=== PATIENT | female | born 1975 | race Caucasian/White ===

== ENCOUNTER 2024-01-09 14:03 | Observation (INO) | payer BC ==
[2024-01-09 14:34] LABS: Absolute Neutrophil Ct (ANC) 4.41 x10^3/uL (1.56-6.13); BASOPHIL % 0.6 % (0.1-1.2); Basophil (Absolute #) 0.04 x10^3/uL (0.01-0.08); Eosinophil % 0.9 % (0.7-5.8); Eosinophil (Absolute #) 0.06 x10^3/uL (0.04-0.36); Hematocrit 40.1 % (34.1-44.9); Hemoglobin 13.3 g/dL (11.2-15.7); IMMATURE GRAN # 0.01 x10^3u/L (0.001-0.031); IMMATURE GRAN % 0.2 % (0.001-0.429); Lymphocyte (Absolute #) 1.43 x10^3/uL (1.18-3.74); Lymphocytes % 21.9 % (19.3-51.7); Mean Cell Volume 84.4 fL (79.4-94.8); Mean Corpuscular Hgb Concent. 33.2 g/dL (32.2-35.5); Mean Platelet Volume 9.3 fL (9.4-12.3); Monocyte (Absolute #) 0.57 x10^3/uL (0.24-0.86); Monocytes % 8.7 % (4.7-12.5); Neutrophil % 67.7 % (34.0-71.1); Platelet Count 327 x10^3/uL (182-369); Red Blood Count 4.75 x10^6/uL (3.93-5.22); Red Cell Distribution Width 12.5 % (11.7-14.4); White Blood Count 6.5 x10^3/uL (3.98-10.04)
[2024-01-09] MEDS ORDERED: Sodium Chloride 0.9% 1000 ML 1,000 ML ONE ×2 (14:34→20:22)
[2024-01-09] MEDS ORDERED: Zofran 4 MG/2 ML VIAL ONE ×2 (14:34→17:32)
[2024-01-09] MEDS ORDERED: PROTONIX 40 MG IV IV ONE (14:34)
[2024-01-09] MEDS: Zofran 4 MG/2 ML VIAL IV ONE (14:38)
[2024-01-09] MEDS: Sodium Chloride 0.9% 1000 ML 1,000 ML IV STA (14:38)
[2024-01-09 14:39] LABS: HCG URINE TEST NEGATIVE (NEGATIVE)
[2024-01-09] MEDS: PROTONIX 40 MG IV IV ONE (14:39)
--- NOTE | 2024-01-09 14:41 | ERPHSYRPT ---
- History of Present Illness Time Seen by Provider: 01/09/24 14:39 Historian: patient Exam Limitations: no limitations Patient Subjective Stated Complaint: Lower right sided abdominal pain Triage Nursing Assessment: Patient ambulated back to ED and transferred self to bed. Patient A+O X3. Patient's skin pink, warm and dry. Patient complains of ri ght lower abdominal pain 2/10 that started last night. Patient states the pain is worse at times when she walks or coughs. Patient complains of nausea, but denies vomiting. Physician History: Lower right sided abdominal pain since last night. Got worst in AM today. Patient complains of right lower abdominal pain 2/10 that started last night. Patient states the pain is worse at times when she walks or coughs. Patient complains of nausea, but denies vomiting. Timing/Duration: yesterday Quality: aching, stabbing Abdominal Pain Onset Location: RLQ, LLQ, periumbilical Pain Radiation: no radiation Severity of Pain-Max: moderate Severity of Pain-Current: moderate Modifying Factors: Improves With: nothing Associated Symptoms: loss of appetite, nausea, No diarrhea, No fever/chills, No vomiting Previous symptoms: no prior history Allergies/Adverse Reactions: No Known Drug Allergies Allergy (Verified 01/09/24 14:08) Home Medications: Semaglutide [Wegovy] 0.5 mg SQ WEEKLY 01/09/24 [History] Hx Influenza Vaccination/Date Given: No Hx Pneumococcal Vaccination/Date Given: No Immunizations Up to Date: Yes Travel Risk - International Travel Have you traveled outside of the country in past 3 weeks: No - Emerging Infectious Disease Are you exhibiting symptoms associated with any current EIDs: No - Review of Systems Constitutional: No Fever, No Chills Eyes: No Symptoms Ears, Nose, & Throat: No Symptoms Respiratory: No Cough, No Dyspnea Cardiac: No Chest Pain, No Edema, No Syncope Abdominal/Gastrointestinal: Abdominal Pain, Nausea, No Vomiting, No Diarrhea Genitourinary Symptoms: No Dysuria Musculoskeletal: No Back Pain, No Neck Pain Skin: No Rash Neurological: No Dizziness, No Focal Weakness, No Sensory Changes Psychological: No Symptoms Endocrine: No Symptoms All Other Systems: Reviewed and Negative - Past Medical History Pertinent Past Medical History: Yes Neurological History: No Pertinent History ENT History: No Pertinent History Cardiac History: Hypertension Respiratory History: No Pertinent History Endocrine Medical History: No Pertinent History Musculoskeletal History: No Pertinent History GI Medical History: No Pertinent History History: No Pertinent History Psycho-Social History: No Pertinent History Female Reproductive Disorders: No Pertinent History - Past Surgical History Past Surgical History: Yes Neuro Surgical History: No Pertinent History Cardiac: No Pertinent History Respiratory: No Pertinent History Gastrointestinal: No Pertinent History Musculoskeletal: Other Female Surgical History: Section Other Surgical History: ABLATION LEFT LEG,UTERINE POLYPECTOMY - Female History Hx Last Menstrual Period: 3 weeks ago Hx Now: No - Social History Smoking Status: Never smoker Exposure to second hand smoke: No Drug Use: none - Social Determinants of Health Will the patient participate in the screening: Yes Do you worry about a steady place to live?: No Do you have any problems with any of the following?: No known problems In the past 12 months,have you had to go without utilities?: No Transportation Issues: No Has anyone in your support network made you feel unsafe?: No Have you or anyone in your house had to go without enough: No - Nursing Vital Signs Nursing Vital Signs: Initial Vital Signs Temperature 98.3 F 01/09/24 14:11 Pulse Rate 118 H 01/09/24 14:11 Respiratory Rate 20 01/09/24 14:11 Blood Pressure 158/102 01/09/24 14:11 O2 Sat by Pulse Oximetry 100 01/09/24 14:11 Pain Scale Pain Intensity 2 - Physical Exam General Appearance: no apparent distress, alert Eye Exam: PERRL/EOMI, eyes nml inspection Ears, Nose, Throat Exam: normal ENT inspection, pharynx normal, moist mucous membranes Neck Exam: normal inspection, non-tender, supple, full range of motion Respiratory Exam: normal breath sounds, lungs clear, No respiratory distress Cardiovascular Exam: regular rate/rhythm, normal heart sounds Gastrointestinal/Abdomen Exam: soft, tenderness (right lower quadrant), No mass Pelvic Exam: not done Rectal Exam: deferred Back Exam: normal inspection, normal range of motion, No CVA tenderness, No vertebral tenderness Extremity Exam: normal inspection, normal range of motion, pelvis stable Neurologic Exam: alert, oriented x 3, cooperative, normal mood/affect, nml cerebellar function, sensation nml, No motor deficits Skin Exam: normal color, warm, dry SpO2 Interpretation: normal SpO2: 100 O2 Delivery: Room Air - Course Nursing assessment & vital signs reviewed: Yes - CT Exams Abdomen/Pelvis CT Interpretation: Tele-radiologist Report (Acute Appendicitis) Ordered Tests: Active Orders 24 hr Category Date Time Status IV Insertion STAT Care 01/09/24 14:19 Active ABDOMEN AND PELVIS W CONTRAST [CT] Stat Exams 01/09/24 14:27 Completed AMYLASE Stat Lab 01/09/24 14:30 Completed CBC W DIFF Stat Lab 01/09/24 14:30 Completed CMP Stat Lab 01/09/24 14:30 Completed HCG QUALITATIVE, URINE Stat Lab 01/09/24 14:30 Completed LIPASE Stat Lab 01/09/24 14:30 Completed UA W/RFX UR CULTURE Stat Lab 01/09/24 14:30 Completed Medication Summary Discontinued Medications Generic Name Dose Route Start Last Admin Trade Name Freq PRN Reason Stop Dose Admin Sodium Chloride 1,000 mls @ 999 mls/hr 01/09/24 14:27 01/09/24 16:12 Sodium Chloride 0.9% 1000 Ml IV 01/09/24 15:27 Infused .Q1H1M STA Infusion Sodium Chloride Confirm 01/09/24 14:34 Sodium Chloride 0.9% 1000 Ml Administered 01/09/24 14:35 Dose 1,000 mls @ ud .ROUTE .STK-MED ONE Morphine Sulfate 4 mg 01/09/24 14:27 Morphine Sulfate 4 Mg/Ml Injection IV 01/09/24 14:28 STAT ONE Ondansetron HCl 4 mg 01/09/24 14:27 01/09/24 14:38 Ondansetron Hcl 4 Mg/2 Ml Vial IV 01/09/24 14:28 4 mg STAT ONE Administration Ondansetron HCl Confirm 01/09/24 14:34 Ondansetron Hcl 4 Mg/2 Ml Vial Administered 01/09/24 14:35 Dose 4 mg .ROUTE .STK-MED ONE Pantoprazole Sodium 40 mg 01/09/24 14:27 01/09/24 14:39 Pantoprazole 40 Mg Vial IV 01/09/24 14:28 40 mg STAT ONE Administration Pantoprazole Sodium Confirm 01/09/24 14:34 Pantoprazole 40 Mg Vial Administered 01/09/24 14:35 Dose 40 mg IV .STK-MED ONE Lab/Rad Data: Laboratory Result Diagrams 01/09/24 14:30 01/09/24 14:30 Laboratory Results 09/01/09/24 01/09/24 Range/Units 14:30 14:30 14:30 WBC 6.5 (3.98-10.04) x10^3/uL RBC 4.75 (3.93-5.22) x10^6/uL Hgb 13.3 (11.2-15.7) g/dL Hct 40.1 (34.1-44.9) % MCV 84.4 (79.4-94.8) fL MCH 28.0 (25.6-32.2) pg MCHC 33.2 (32.2-35.5) g/dL RDW 12.5 (11.7-14.4) % Plt Count 327 (182-369) x10^3/uL MPV 9.3 L (9.4-12.3) fL Gran % 67.7 (34.0-71.1) % Immature Gran % (Auto) 0.2 (0.001-0.429) % Nucleat RBC Rel Count 0.0 (0.00-0.2) % Eos # (Auto) 0.06 (0.04-0.36) x10^3/uL Immature Gran # (Auto) 0.01 (0.001-0.031) x10^3u/L Absolute Lymphs (auto) 1.43 (1.18-3.74) x10^3/uL Absolute Monos (auto) 0.57 (0.24-0.86) x10^3/uL Absolute Nucleated RBC 0.00 (0.00-0.012) x10^3u/L Lymphocytes % 21.9 (19.3-51.7) % Monocytes % 8.7 (4.7-12.5) % Eosinophils % 0.9 (0.7-5.8) % Basophils % 0.6 (0.1-1.2) % Absolute Granulocytes 4.41 (1.56-6.13) x10^3/uL Basophils # 0.04 (0.01-0.08) x10^3/uL Sodium 139 (135-145) mmol/L Potassium 3.7 (3.5-5.1) mmol/L Chloride 107 (98-107) mmol/L Carbon Dioxide 23 (22-30) mmol/L Anion Gap 12.5 (5-15) MEQ/L BUN 10 (7-17) mg/dL Creatinine 0.79 (0.52-1.04) mg/dL Estimated GFR 92.2 ML/MIN Glucose 97 (74-106) mg/dL Calcium 9.2 (8.4-10.2) mg/dL Total Bilirubin 0.80 (0.2-1.3) mg/dL AST 24 (14-36) U/L ALT 19 (0-35) U/L Alkaline Phosphatase 58 (38-126) U/L Serum Total Protein 7.9 (6.3-8.2) g/dL Albumin 4.6 (3.5-5.0) g/dL Amylase 81 (30-110) U/L Lipase 132 (23-300) U/L Urine Color (Yellow) Urine Appearance (Clear) Urine pH (4.6-8.0) Ur Specific Pierce (1.005-1.030) Urine Protein (Negative) Urine Glucose (UA) (Negative) mg/dL Urine Ketones (Negative) Urine Blood (Negative) Urine Nitrite (Negative) Urine Bilirubin (Negative) Urine Urobilinogen (0.2) mg/dL Ur Leukocyte Esterase (Negative) U Hyaline Cast (Auto) (0-2) /LPF Urine Microscopic RBC (0-5) /HPF Urine Microscopic WBC (0-5) /HPF Ur Epithelial Cells (None Seen) /HPF Urine Bacteria (None Seen) /HPF Urine Culture Reflexed (NO) Urine HCG, Qual NEGATIVE (NEGATIVE) 01/09/24 Range/Units 14:30 WBC (3.98-10.04) x10^3/uL RBC (3.93-5.22) x10^6/uL Hgb (11.2-15.7) g/dL Hct (34.1-44.9) % MCV (79.4-94.8) fL MCH (25.6-32.2) pg MCHC (32.2-35.5) g/dL RDW (11.7-14.4) % Plt Count (182-369) x10^3/uL MPV (9.4-12.3) fL Gran % (34.0-71.1) % Immature Gran % (Auto) (0.001-0.429) % Nucleat RBC Rel Count (0.00-0.2) % Eos # (Auto) (0.04-0.36) x10^3/uL Immature Gran # (Auto) (0.001-0.031) x10^3u/L Absolute Lymphs (auto) (1.18-3.74) x10^3/uL Absolute Monos (auto) (0.24-0.86) x10^3/uL Absolute Nucleated RBC (0.00-0.012) x10^3u/L Lymphocytes % (19.3-51.7) % Monocytes % (4.7-12.5) % Eosinophils % (0.7-5.8) % Basophils % (0.1-1.2) % Absolute Granulocytes (1.56-6.13) x10^3/uL Basophils # (0.01-0.08) x10^3/uL Sodium (135-145) mmol/L Potassium (3.5-5.1) mmol/L Chloride (98-107) mmol/L Carbon Dioxide (22-30) mmol/L Anion Gap (5-15) MEQ/L BUN (7-17) mg/dL Creatinine (0.52-1.04) mg/dL Estimated GFR ML/MIN Glucose (74-106) mg/dL Calcium (8.4-10.2) mg/dL Total Bilirubin (0.2-1.3) mg/dL AST (14-36) U/L ALT (0-35) U/L Alkaline Phosphatase (38-126) U/L Serum Total Protein (6.3-8.2) g/dL Albumin (3.5-5.0) g/dL Amylase (30-110) U/L Lipase (23-300) U/L Urine Color Yellow (Yellow) Urine Appearance Clear (Clear) Urine pH 6.0 (4.6-8.0) Ur Specific Pierce 1.020 (1.005-1.030) Urine Protein Trace A (Negative) Urine Glucose (UA) Negative (Negative) mg/dL Urine Ketones Trace A (Negative) Urine Blood Negative (Negative) Urine Nitrite Negative (Negative) Urine Bilirubin Negative (Negative) Urine Urobilinogen 0.2 (0.2) mg/dL Ur Leukocyte Esterase Negative (Negative) U Hyaline Cast (Auto) NONE SEEN (0-2) /LPF Urine Microscopic RBC 3-5 (0-5) /HPF Urine Microscopic WBC 0-2 (0-5) /HPF Ur Epithelial Cells Moderate A (None Seen) /HPF Urine Bacteria Few A (None Seen) /HPF Urine Culture Reflexed NO (NO) Urine HCG, Qual (NEGATIVE) - Progress Progress: unchanged, pain not gone completely Discussed with : Estuardo Counseled pt/family regarding: lab results, diagnosis, rad results Medical Desision Making - Discussion of managment Care discussed with:: specialist (surgery Dr Akhtar) Agreed on:: Treatment plan, place in obs Will see patient: in hospital - Diagnostic Testing Diagnostic test were ordered, analyzed, and reviewed by me: Yes Radiological Interpretation: Teleradiologist Report - Risk of complications The pt has a mod risk of morbidity or mortality based on: Need for major surgery in otherwise healthy patient - Departure Departure Disposition: Observation Clinical Impression: Acute appendicitis Qualifiers: Acute appendicitis type: with localized peritonitis Appendicitis gangrene presence: without gangrene Appendicitis perforation presence: without perforation Appendicitis abscess presence: unspecified whether abscess present Qualified Code(s): K35.30 - Acute appendicitis with localized peritonitis, without perforation or gangrene Condition: Stable Critical Care Time: Yes Critical Care Time(excluding separately billable procedures): Critical 30-74 mins Referrals: DOCTOR,NO FAMILY [NON-STAFF PHY W/O PRIVILEGES] - Follow up/PCP as directed Instructions: Appendicitis in adults
[2024-01-09 14:44] LABS: Appearance Clear (Clear); Bacteria Few /HPF (None Seen); Bilirubin Negative (Negative); Blood Negative (Negative); Epithelial Cells Moderate /HPF (None Seen); Glucose, Urine Negative (Negative); Hyaline Casts NONE SEEN /LPF (0-2); Ketones Trace (Negative); Leukocyte Esterase Negative (Negative); Nitrite Negative (Negative); Protein,Urine Dip Trace (Negative); Urobilinogen 0.2 mg/dL (0.2); WBC 0-2 /HPF (0-5)
[2024-01-09 14:48] LABS: ADD URINE CULTURE? NO (NO); ALBUMIN 4.6 g/dL (3.5-5.0); ANION GAP 12.5 MEQ/L (5-15); BILIRUBIN,TOTAL 0.8 mg/dL (0.2-1.3); Calcium 9.2 mg/dL (8.4-10.2); Creatinine 1 0.79 mg/dL (0.52-1.04); EST GLOMERULAR FILTRATION RATE 92.2 ML/MIN; Potassium 3.7 mmol/L (3.5-5.1); Total Protein 7.9 g/dL (6.3-8.2)
--- NOTE | 2024-01-09 16:17 | XRAY ---
CLINICAL HISTORY: right lower abdominal pain COMPARISON: No prior studies available for comparison. TECHNIQUE: CT of the abdomen and pelvis was performed with IV contrast, with the following protocol: axial images with reconstructed coronal and sagittal images. One of the following dose reduction techniques was utilized for this exam: Automated exposure control, adjustment of the mA and/or kV according to patient size, and use of iterative reconstruction. FINDINGS: Abdomen: Liver: Normal in size, shape, and density. No focal lesions, cysts, or masses were identified. Hepatic vasculature and biliary ducts are unremarkable. Gallbladder and Biliary System: The gallbladder is normal in size and shape. No wall thickening, pericholecystic fluid, or gallstones were identified. The common bile duct is normal in caliber without dilation. Pancreas: Pancreatic head, body, and tail are visualized and appear normal in size and density. No pancreatic masses or calcifications were noted. The pancreatic duct is not dilated. Spleen: Normal in size, shape, and density. No splenic lesions or masses were identified. Kidneys and Adrenal Glands: Both kidneys are normal in size, shape, and position. Cortical thickness is within normal limits. No renal calculi or hydronephrosis. Adrenal glands are unremarkable with no evidence of masses or hyperplasia. Pelvis: Urinary Bladder: Normal in contour and wall thickness. No intraluminal lesions identified. Uterus: Normal in size and contour. No masses or abnormal thickening. Ovaries: No gross abnormalities noted. Vagina: Normal in contour and wall thickness. Cervix: No evidence of mass or abnormal thickening. Peritoneal and Retroperitoneal Structures: No free fluid or abnormal fluid collections were identified within the abdomen or pelvis. No lymphadenopathy was noted. Bowel: The visualized bowel loops are normal in caliber and appearance. No evidence of bowel obstruction or wall thickening. Appendix is dilated with wall thickening measures 0.8-0.9 cm in diameter. No periappendiceal fat stranding seen. Minor adjacent free effusion is noted. Findings could represent acute appendicitis. No appendicular rupture or collection seen in the current scan. Bones and Soft Tissues: Pelvic bones and soft tissues are unremarkable. No fractures or abnormal masses were identified. IMPRESSION: 1. Appendix is dilated and measures 0.8-0.9 cm in diameter, minor adjacent free effusion is noted, findings could represent acute appendicitis. Clinical and lad correlation is advised. Electronically Signed by: Jean Claude Stacy MD. (01/09/2024 16:12:42 EDT)
[2024-01-09] MEDS ORDERED: DIPRIVAN 200 MG/20 ML IV ONE (17:17)
[2024-01-09] MEDS ORDERED: Quelicin Fliptop 200 MG/10 ML ONE (17:17)
[2024-01-09] MEDS ORDERED: SUBLIMAZE 100 MCG/2 ML ONE ×2 (17:17→17:34)
[2024-01-09] MEDS ORDERED: Versed 2 MG/2 ML Injection ONE (17:17)
[2024-01-09] MEDS ORDERED: ROCURONIUM BROMIDE IV ONE (17:17)
[2024-01-09] MEDS ORDERED: Xylocaine-Mpf 2% 5 Ml Vial ONE (17:21)
[2024-01-09] MEDS ORDERED: Decadron 4 MG INJ ONE (17:32)
[2024-01-09] MEDS: MORPHINE SULFATE 2 MG INJ IV ONE (17:34)
[2024-01-09] MEDS: MORPHINE SULFATE 4 MG INJ IV ONE (17:35)
[2024-01-09] MEDS ORDERED: BREVIBLOC 100 MG/10 ML IV ONE (17:36)
[2024-01-09] MEDS ORDERED: TORAdol 30 mg Injection ONE (17:43)
[2024-01-09] MEDS ORDERED: BRIDION 200MG/2ML IV ONE (17:49)
[2024-01-09] MEDS ORDERED: TYLENOL 325 MG ONE (20:43)
[2024-01-09] MEDS: Sodium Chloride 0.9% 1000 ML 1,000 ML IV SCH (21:02)
[2024-01-09] MEDS: TYLENOL 325 MG PO PRN (21:03)
[2024-01-09] MEDS ORDERED: MORPHINE SULFATE 2 MG INJ IV PRN (21:07)
[2024-01-09] MEDS ORDERED: Zofran 4 MG/2 ML VIAL IV PRN (21:09)
[2024-01-09] MEDS ORDERED: PIPERACILLIN/TAZOBACTAM IV ONE (23:23)
[2024-01-09] MEDS ORDERED: Sodium Chloride 100ML MINI-BAG PLUS 100 ML IV ONE (23:24)
[2024-01-09] MEDS: PIPERACILLIN/TAZOBACTAM 3.375 GM in Sodium Chloride 100ML MINI-BAG PLUS 100 ML IV SCH (23:35)
[2024-01-09] MEDS: NORCO 5/325 MG PO PRN (23:45)
[2024-01-10] MEDS ORDERED: PIPERACILLIN/TAZOBACTAM IV ONE (05:48)
[2024-01-10] MEDS ORDERED: Sodium Chloride 100ML MINI-BAG PLUS 100 ML IV ONE (05:49)
[2024-01-10 06:03] LABS: Hematocrit 36.6 % (34.1-44.9); Hemoglobin 11.7 g/dL (11.2-15.7); Mean Cell Volume 85.9 fL (79.4-94.8); Mean Corpuscular Hemoglobin 27.5 pg (25.6-32.2); Mean Platelet Volume 9.5 fL (9.4-12.3); Platelet Count 292 x10^3/uL (182-369); Red Blood Count 4.26 x10^6/uL (3.93-5.22); Red Cell Distribution Width 12.5 % (11.7-14.4); White Blood Count 4.6 x10^3/uL (3.98-10.04)
[2024-01-10 11:52] VITALS: BP 121/78; PULSE 63; RESP 15; TEMP 97.6; O2SAT 100
[2024-01-10] MEDS: NORCO 5/325 MG PO ONE (12:36)
--- NOTE | 2024-01-11 00:15 | DS ---
DISCHARGE SUMMARY PREOPERATIVE DIAGNOSIS: Acute abdominal pain suspicious for acute appendicitis. POSTOPERATIVE DIAGNOSIS: Acute nonperforated appendicitis. PROCEDURE: Laparoscopic appendectomy, diagnostic laparoscopy on 01/08/2022. For details, see admitted history and physical and operative note. HOSPITAL COURSE: The patient was admitted postoperative appendectomy for pain control, on IV antibiotics. Overnight, she did well. Her white count was in normal range. She is tolerating p.o., had adequate pain control, felt she could be discharged home in good condition on 01/10/2024. She is to follow up in the office in 1 week. She was given prescription for Augmentin and her p.o. antibiotics for a few days as well as some p.o. hydrocodone for pain control. Discharged home in good condition.
--- NOTE | 2024-01-11 00:55 | HP ---
HISTORY AND PHYSICAL PREOPERATIVE DIAGNOSIS: Acute right lower quadrant pain suspicious for possible acute appendicitis. HISTORY OF PRESENT ILLNESS: The patient had some midabdominal pain localized to right lower quadrant over the past day or so. PAST MEDICAL HISTORY: She denied any chronic illnesses. HOME MEDICATIONS: She has been on Ozempic for some weight loss. ALLERGIES: No known drug allergies. PAST SURGICAL HISTORY: She had a and polyp removed from her uterus in the past she said. She denied any other abdominal surgery. SOCIAL HISTORY: She denies smoking. FAMILY HISTORY: Negative in regard to this problem. REVIEW OF SYSTEMS: Twelve systems reviewed per ER admission assessment. Pertinent for as noted in above, pertinent for abdominal pain. Other systems negative or noncontributory as above and per preadmission questionnaire. PHYSICAL EXAMINATION: GENERAL: Height 5 feet 4 inches, no acute distress. HEENT: Sclerae anicteric. Mucous membranes moist. Extraocular movements intact. NECK: No JVD. CHEST: Equal excursion, nonlabored breathing CARDIOVASCULAR: Regular rate and rhythm. ABDOMEN: A little bit of a wave. She has some localized tenderness in the right lower quadrant. EXTREMITIES: No cyanosis or edema. NEUROLOGIC: Alert, moving extremities symmetrically. PSYCHIATRIC: Appropriate mood and affect. LABORATORY DATA AND TESTS: CT scan showed dilated appendix with some fluid around it consistent with acute appendicitis, otherwise no free air. White count not elevated according to ER physician. Labs were reviewed. IMPRESSION: Acute lower abdominal pain. Physical exam, history, CT findings consistent for acute appendicitis. Other differential includes mesenteric adenitis, gynecologic etiology or other etiology. Either way, felt she would benefit from diagnostic laparoscopy, laparoscopic appendectomy, possible open when OR time available. She understands the risk of bleeding, infection, risk of trocar injury or hernia, risk of bowel or bladder, blood vessel injury, risk of subsequent intra-abdominal abscess or fistula formation possibly requiring percutaneous drainage even at a later date, general risk of anesthesia, DVT, PE, pneumonia, possibility if we find normal appendix, likely will remove incidentally and look for other etiology that we might take care of surgically, possible need for open procedure, risk of perioperative ileus and obstruction but not limited to. Consent obtained. We will proceed with diagnostic laparoscopy, laparoscopic appendectomy and possible open when OR time available.
--- NOTE | 2024-01-11 01:00 | OP ---
SURGERY DATE/TIME: 01/09/2024 [id number] PREOPERATIVE DIAGNOSIS: Acute right lower quadrant pain suspicious for acute appendicitis. POSTOPERATIVE DIAGNOSIS: Acute nonperforated appendicitis. PROCEDURE: Laparoscopic appendectomy. SURGEON: Craig Akhtar M.D. ANESTHESIA: General. ESTIMATED BLOOD LOSS: Minimal. INDICATIONS: As above. Consent was obtained. DESCRIPTION OF PROCEDURE AND FINDINGS: The patient was taken to the operating room. General anesthesia was induced. She was prepped and draped in sterile fashion. After official time-out, no disagreement in planned procedure. Transverse incision made at the supraumbilical area. Fascia grasped and pulled upward. Veress needle inserted. Tested with saline. Pneumoperitoneum accomplished insufflating from an opening pressure of 0-15. A 5 mm bladeless port and camera inserted without difficulty followed by midline 5 mm port and midabdomen 12 mm port. There was no evidence of any intraabdominal injury secondary to trocar insertion. She had some seropurulent fluid down in the pelvis anterior to the uterus. Ovaries werew unremarkable bilateral. She had a prior and polyp removed from her uterus in the past. She did have some adhesions from her right tube up to the anterior abdominal wall and fixated to the abdominal wall. The appendix itself was dilated. There was no macroperforaction, but I definitely thought it was early acute appendicitis. Mesoappendix taken down and then ligated with the LigaSure device. The appendix was stapled at the base of the appendix at the cecum with Endo MICHELLE stapler. Good hemostasis noted and no signs of any leakage. Otherwise, it was felt taking the cyst off the anterior abdominal wall would do more harm than good at this point given her infection from the appendicitis, so this would be left alone. At this point, the small-bowel was run proximally. She did have a little bit of fat in the mesentery. There was no evidence of any Meckel's diverticulum. She did have a few simple fatty adhesions of the right colon to the anterior abdominal wall. I felt these should be left alone as they were not causing any obstruction issue. Copious irrigation down in the pelvis and anterior uterus, irrigated clear, and around where the appendix had been removed. Mesoappendix LigaSure site was dry. Staple line was dry on the cecum. Appendix was then placed in a bag and pulled out the 12 port. The 12 fascia defect closed with puncture closure device and #1 Vicryl. Pneumoperitoneum decompressed. Wounds irrigated out. Skin incisions closed with 4-0 Vicryl; 0.25% Marcaine local injected along each skin incision and fascial defect for anesthesia. The patient tolerated the procedure well. There were no immediate complications. Findings discussed with his out in the waiting area. She will be transferred to the recovery room in stable condition.
== END 2024-01-10 12:58 | disposition home or self-care (01) ==
LOC: ED 14:03 → MED SURG 18:35
PROVIDERS: ADMIT Surgery; ATTEND Surgery
DX: K35.80 Unspecified acute appendicitis (principal); R10.31 Right lower quadrant pain
CPT/HCPCS: 36000; 36415; 74177; 80053; 81001; 81025; 82150; 83690; 85025; 85027; 96360; 96374; 96375; 99284; 99291; G0378; J0330; J1100; J1885; J2250; J2405; J2704; J3010; A9270-GY